=== PATIENT | female | born 1970 | race African-American/Black ===

== ENCOUNTER 2021-05-01 23:18 | Emergency (ER) | payer SELFPAY ==
[2021-05-01] MEDS ORDERED: methylPREDNISolone Sodium Succinate 125 MG/2 ML SDV IVPUSH ONE (23:20)
[2021-05-01] MEDS ORDERED: Albuterol/Ipratropium 3.0-0.5 MG/3 ML Neb Soln NEB ONE (23:20)
[2021-05-02] MEDS ORDERED: Ketorolac 30 MG/ML SDV IVPUSH ONE (00:48)
== END 2021-05-02 06:21 | disposition home or self-care (01) ==
LOC: JP.ED 23:18
DX: S06.9X9A Unspecified intracranial injury with loss of consciousness of unspecified duration, initial encounter (principal); S82.301A Unspecified fracture of lower end of right tibia, initial encounter for closed fracture; F10.129 Alcohol abuse with intoxication, unspecified; E78.00 Pure hypercholesterolemia, unspecified; I10 Essential (primary) hypertension; E11.9 Type 2 diabetes mellitus without complications; E66.9 Obesity, unspecified; Y90.6 Blood alcohol level of 120-199 mg/100 ml; Z79.82 Long term (current) use of aspirin; Z88.0 Allergy status to penicillin; Z79.899 Other long term (current) drug therapy; Z68.42 Body mass index [BMI] 45.0-49.9, adult; Z72.0 Tobacco use; W00.0XXA Fall on same level due to ice and snow, initial encounter
CPT/HCPCS: 29515; 36415; 70450; 73610-RT; 80053; 80307; 85025; 85610; 85730; 93005; 94640; 96374; 96375; 99283; 99285-25; J1885; J2930; J7620